=== PATIENT | male | born 1970 | race Caucasian/White ===

== ENCOUNTER 2022-04-03 13:40 | Outpatient (CLI) | payer BC, SELFPAY ==
[2022-04-03 13:30] LABS: Albumin* 4.1 g/dL (3.3-5.0); Chloride* 103 mmol/L (96-114); Sodium* 139 mmol/L (135-149)
[2022-04-03 13:31] LABS: Potassium* 4.4 mmol/L (3.6-5.1)
[2022-04-03 13:33] LABS: Alkaline Phosphatase* 63 U/L (40-150); Aspartate Amino Transferase* 59 U/L (12-35); Bilirubin Total* 0.8 mg/dL (0.1-1.5); Blood Urea Nitrogen* 14 mg/dL (7-30); Carbon Dioxide* 31 mmol/L (20-32); Cholesterol* 172 mg/dL (90-199); Creatinine* 0.6 mg/dL (0.5-1.5); Estimated Glomerular Filt Rate 118 ml/min; Glucose* 153 mg/dL (60-115); Total Protein* 6.9 g/dL (6.0-8.3); Triglycerides* 153 mg/dL (40-149)
[2022-04-03 13:34] LABS: Alanine Aminotransferase* 96 U/L (4-50); HDL Cholesterol* 46 mg/dL (>=40); LDL Cholesterol Calculated 95 mg/dL (<100)
[2022-04-03 14:02] LABS: PSA Screen* 0.74 ng/mL (0.10-4.00)
== END 2022-04-03 13:41 | disposition home or self-care (01) ==
PROVIDERS: PCP Emergency Medicine; Visit Provider Emergency Medicine
DX: E78.5 Hyperlipidemia, unspecified (principal); I10 Essential (primary) hypertension; R73.03 Prediabetes; R74.01 Elevation of levels of liver transaminase levels; Z12.5 Encounter for screening for malignant neoplasm of prostate
CPT/HCPCS: 80053; 80061; 84153

== ENCOUNTER 2022-06-04 19:27 | Outpatient (CLI) | payer BC, SELFPAY ==
--- NOTE | 2022-06-17 11:12 | P.SLS_ITS ---
Sleep Study Details Details Interpreting Provider: Ankit Date of Sleep Study: 06/04/22 Sleep Study Details: STUDY TYPE:? Home ? BMI:? Not recorded ORDERING PROVIDER:? Andi INDICATION:? Concerns about sleep apnea ? SLEEP SUMMARY:? 201 minutes monitored RESPIRATORY SUMMARY:? AHI 47.5, supine 64, left lateral 47.9, right lateral 9.1, (39 minutes) Low oxygen 71 86.6% of study oxygen below 90% Snoring 0.7% PERIODIC LIMB MOVEMENTS OF SLEEP:? Not recorded CARDIAC:? Range 52-110, mean 73.3 beats per minute IMPRESSION:? Severe obstructive sleep apnea RECOMMENDATION: Recommend trial AutoSet CPAP pressure 4-18 with close follow- up.
== END 2022-06-04 19:28 | disposition home or self-care (01) ==
LOC: SLEEP 19:27
PROVIDERS: PCP Emergency Medicine; Visit Provider Emergency Medicine
DX: G47.33 Obstructive sleep apnea (adult) (pediatric) (principal)
CPT/HCPCS: 95806

== ENCOUNTER 2022-06-13 09:39 | Outpatient (CLI) | payer BC, SELFPAY | END 2022-06-13 09:40 | disposition home or self-care (01) | PROVIDERS: PCP Emergency Medicine; Visit Provider Internal Medicine | DX: Z12.11 Encounter for screening for malignant neoplasm of colon (principal); K63.5 Polyp of colon; K57.30 Diverticulosis of large intestine without perforation or abscess without bleeding | CPT/HCPCS: 45385; J2250; J3010 ==

== ENCOUNTER 2023-01-08 13:52 | Outpatient (CLI) | payer BC, SELFPAY | END 2023-01-08 13:53 | disposition home or self-care (01) | LOC: NFLDREF 01-13 17:30 | PROVIDERS: PCP Emergency Medicine; Referring Provider Emergency Medicine; Visit Provider Emergency Medicine | DX: E11.9 Type 2 diabetes mellitus without complications (principal); I10 Essential (primary) hypertension; R74.01 Elevation of levels of liver transaminase levels; E03.9 Hypothyroidism, unspecified; R73.03 Prediabetes; E78.5 Hyperlipidemia, unspecified; Z13.6 Encounter for screening for cardiovascular disorders | CPT/HCPCS: 80053; 82043; 82570 ==

== ENCOUNTER 2023-01-21 07:50 | Outpatient (CLI) | payer BC, SELFPAY ==
--- NOTE | 2023-01-21 08:45 | CRLHL7_ITS ---
For Patients: As a result of the Century Cures Act, medical imaging exams and procedure reports are released immediately into your electronic medical record. You may view this report before your referring provider. If you have questions, please contact your health care provider. INDICATION: elevated LFTS COMPARISON: none TECHNIQUE: Real time mercado scale imaging and color Doppler analysis was performed of the right upper quadrant. FINDINGS: The patient`s liver is of increased size and has diffusely coarsened and increased echogenicity. There is a normal appearance of the hepatic IVC and proximal abdominal aorta. There is no evidence of ascites. The gallbladder is of normal size and there is no evidence of intraluminal stones or sludge. The gallbladder wall measures 2.7 mm in thickness. The common bile duct is of normal size and measures 6.7 mm in diameter at the level of the cami hepatis. The pancreas is not well-visualized. There is no evidence of a stone or hydronephrosis within the right kidney. The right kidney measures 13.9 cm in length. IMPRESSION: Hepatomegaly and diffuse hepatic steatosis. Dictated by Ricky Chacko MD @ 01/21/2023 10:56:35 AM (Electronically Signed)
== END 2023-01-21 07:51 | disposition home or self-care (01) ==
LOC: US 07:50
PROVIDERS: PCP Emergency Medicine; Visit Provider Emergency Medicine
DX: R74.01 Elevation of levels of liver transaminase levels (principal); K76.0 Fatty (change of) liver, not elsewhere classified
CPT/HCPCS: 76705

== ENCOUNTER 2023-04-30 10:29 | Outpatient (CLI) | payer BC, SELFPAY | END 2023-04-30 10:30 | disposition home or self-care (01) | PROVIDERS: PCP Emergency Medicine; Visit Provider Emergency Medicine | DX: E11.9 Type 2 diabetes mellitus without complications (principal); M25.562 Pain in left knee | CPT/HCPCS: 84550; 86140 ==

== ENCOUNTER 2023-07-23 07:58 | Outpatient (CLI) | payer BC, SELFPAY | END 2023-07-23 07:59 | disposition home or self-care (01) | LOC: NFLDREF 08-11 12:43 | PROVIDERS: PCP Emergency Medicine; Referring Provider Emergency Medicine; Visit Provider Emergency Medicine | DX: E11.9 Type 2 diabetes mellitus without complications (principal); Z12.5 Encounter for screening for malignant neoplasm of prostate | CPT/HCPCS: 80053; 80061; G0103 ==

== ENCOUNTER 2024-08-04 08:43 | Outpatient (CLI) | payer BC, SELFPAY | END 2024-08-04 08:44 | disposition home or self-care (01) | PROVIDERS: PCP Emergency Medicine; Visit Provider Emergency Medicine | DX: Z00.00 Encounter for general adult medical examination without abnormal findings (principal); E78.2 Mixed hyperlipidemia; I10 Essential (primary) hypertension; E11.9 Type 2 diabetes mellitus without complications; Z79.84 Long term (current) use of oral hypoglycemic drugs; Z79.85 Long-term (current) use of injectable non-insulin antidiabetic drugs; Z12.5 Encounter for screening for malignant neoplasm of prostate | CPT/HCPCS: 80053; 80061; 82043; 82570; G0103 ==